=== PATIENT | male | born 1955 | race Native Hawaiian/Other Pacific Islander ===

== ENCOUNTER 2017-10-29 22:12 | Emergency (ER) | payer OTHER ==
[~2017-10-29] VITALS: Ht 170.2 cm; Wt 83.5 kg
[2017-10-29 22:05] VITALS: TEMP 98.1
[~2017-10-29 22:12] MED LIST: ALPR0.5T24 PO; AMLO2.5T PO; ASPIRIN81 MG PO; ATOR20TA2 PO; B-1100 MG PO; CARV6.25 PO; CLARITIN10 MG PO; CLOBETASOL0.05 % EX; CLON0.1D TD; CLON0.3D TD; CLON1TAB18 PO; CLOP75TA2 PO; CLOTCRE5 EX; DIVA250T2 PO; DIVA500T2 PO; DIVALPROEX250 M1 PO; DIVALPROEX500 M1 PO; DONE5TAB PO; DULCOLAX10 MG RE; EQ STOOL SOFTE100 MG PO; EXTRA STRENGTH500 MG PO; FLUOXETINE20 MG PO; FLUOXETINE60 MG PO; FURO20TA67 PO; IMDUR ER PO; IMDUR30 MG PO; KETO2SHA7 TOP; LIPITOR80 MG PO; NAMENDA5 MG PO; NITROGLYCERIN TL; NITROSTAT0.4 MG SL; OMEPRAZOLE20.6 MGDR PO; POLY3350 PO; QUET25TA2 PO; RISP0.5T2 PO; SENNA8.6 MG PO; SEROQUEL100 MG PO; TAMS0.4C PO; TAMSULOSIN0.4 MG PO; TRAZ100T PO; TRAZ50TA36 PO; TRILEPTAL150 MG PO; [UNRECOGNIZED DRUG - OTHER] OPTH
[2017-10-29 23:18] LABS: PLATELET COUNT 135 K/uL (142-355)
[2017-10-30 00:09] LABS: POTASSIUM 4.2 mmol/L (3.6-5.2)
[2017-10-30 02:11] VITALS: BP 148/92
[2017-10-30] MEDS ORDERED: ASPIRIN 81 LOW81 MG PO (04:20)
[2017-10-30] MEDS ORDERED: ESCITALOPRAM10 MG PO (04:23)
[2017-10-30] MEDS ORDERED: ISOS30TA17 PO (04:27)
[2017-10-30] MEDS ORDERED: NAMENDA10 MG PO (04:31)
[2017-10-30] MEDS ORDERED: DIVALPROEX125 MG PO ×2 (04:41→04:43)
[2017-10-30] MEDS ORDERED: MELATONIN3 M1 PO (04:50)
[2017-10-30] MEDS ORDERED: MIRTAZAPINE7.5 MG PO (04:58)
[2017-10-30] MEDS ORDERED: HYDR5TAB9 PO (05:02)
[2017-10-30] MEDS ORDERED: HYDR10TA47 PO (05:03)
[2017-10-30] MEDS ORDERED: BISAC-EVAC10 MG RE (05:16)
[2017-10-30] MEDS ORDERED: VITAMIN B-12500 MCG PO (05:18)
== END 2017-10-30 02:35 | disposition other institution (70) ==
LOC: ED 22:12
DX: Z04.6 Encounter for general psychiatric examination, requested by authority (principal); E87.1 Hypo-osmolality and hyponatremia; F20.89 Other schizophrenia; I10 Essential (primary) hypertension; I20.9 Angina pectoris, unspecified; F03.90 Unspecified dementia, unspecified severity, without behavioral disturbance, psychotic disturbance, mood disturbance, and anxiety; K21.9 Gastro-esophageal reflux disease without esophagitis; I51.9 Heart disease, unspecified; E78.00 Pure hypercholesterolemia, unspecified; F41.8 Other specified anxiety disorders; Z79.899 Other long term (current) drug therapy; Z51.81 Encounter for therapeutic drug level monitoring; I50.9 Heart failure, unspecified; I25.10 Atherosclerotic heart disease of native coronary artery without angina pectoris
CPT/HCPCS: 36415; 80053; 80061; 80307; 80320; 80329; 81000; 82607; 82746; 83036; 83735; 84100; 84134; 84439; 84443; 85027; 85610; 93005; 96360; 96361; 99285